=== PATIENT | female | born 1970 | race Caucasian/White ===

== ENCOUNTER 2021-06-19 09:40 | Outpatient (CLI) | payer BC | END 2021-06-19 09:41 | disposition home or self-care (01) | LOC: CSHCT 09:40 | PROVIDERS: ATTEND Internal Medicine Gastroenterology | DX: R10.9 Unspecified abdominal pain (principal); R93.5 Abnormal findings on diagnostic imaging of other abdominal regions, including retroperitoneum; R16.0 Hepatomegaly, not elsewhere classified; K86.9 Disease of pancreas, unspecified | CPT/HCPCS: 74170 ==

== ENCOUNTER 2023-01-28 09:44 | Day surgery (SDC) | payer BC ==
[2023-01-24 15:20] VITALS: BMI 26.6
[2023-01-28] MEDS ORDERED: PROPOFOL 20 ML ONE (11:47)
== END 2023-01-28 12:52 | disposition home or self-care (01) ==
LOC: CSHSDC 09:44
PROVIDERS: ATTEND Internal Medicine Gastroenterology
PROC: 0DJD8ZZ Inspection of Lower Intestinal Tract, Via Natural or Artificial Opening Endoscopic (ICD-10-PCS; principal; 2023-01-28)
DX: Z12.11 Encounter for screening for malignant neoplasm of colon (principal); K64.8 Other hemorrhoids; K64.4 Residual hemorrhoidal skin tags; K62.89 Other specified diseases of anus and rectum; Z88.1 Allergy status to other antibiotic agents; Z88.0 Allergy status to penicillin; Z88.2 Allergy status to sulfonamides; Z88.8 Allergy status to other drugs, medicaments and biological substances
CPT/HCPCS: J2704